=== PATIENT | male | born 1955 | race Caucasian/White ===

== ENCOUNTER 2023-03-15 02:19 | Emergency (ER) | payer OTHER, SELFPAY ==
--- NOTE | 2023-03-15 | ECG_ITS ---
Test Reason : ?SEIZURE Blood Pressure : / mmHG Vent. Rate : 076 BPM Atrial Rate : 076 BPM P-R Int : 178 ms QRS Dur : 106 ms QT Int : 394 ms P-R-T Axes : 063 007 086 degrees QTc Int : 443 ms Normal sinus rhythm Normal ECG No previous ECGs available Referred By: Generic ED Physician Electronically Signed By:DUSTIN OLIVER
--- NOTE | ~2023-03-15 | CT_ITS ---
EXAMINATION: CT HEAD WITH/WITHOUT CONTRAST CLINICAL INFORMATION: New onset seizures. History of meningioma. COMPARISON: None available at our institution. TECHNIQUE: Contiguous axial imaging was performed from the skull base to vertex before and after the administration of 100 mL of Omnipaque [address] examination was performed using dose optimization techniques as appropriate, variously including the following: *Automated exposure control *Adjustment of mA and/or kV according to patient size (this includes techniques or standardized protocols for targeted exams where dose is matched to indication/reason for exam; i.e. extremities or head) *Use of iterative reconstruction technique DLP: 1626 mGy-cm FINDINGS: No acute intracranial hemorrhage or extra-axial collection. No acute territorial infarct. Extensive encephalomalacia and gliosis throughout the bilateral inferior frontal lobes. These changes underlie a large frontal calvarial cranioplasty. No areas of abnormal brain parenchymal enhancement. Dural venous sinuses enhance normally. Ventricular system normal in size and configuration. No hydrocephalus. Orbits and globes unremarkable. Mild mucosal thickening in inferior maxillary sinuses bilaterally. CT/CT head/brain wo/w IV con IMPRESSION: * No acute intracranial pathology. * Extensive encephalomalacia and gliosis throughout the bilateral inferior frontal lobes adjacent to the large frontal calvarial cranioplasty. * No areas of abnormal brain parenchymal enhancement.
--- NOTE | 2023-03-15 03:01 | ED.SEIZURE ---
HPI - Seizure General Chief Complaint: Seizure Stated Complaint: ? Seizure Time Seen by Provider: 03/15/23 02:35 Source: patient, family () and EMS Mode of arrival: EMS History of Present Illness HPI Narrative: 67-year-old male who presents via EMS after seizure activity that was witnessed by the during sleep. Patient does have a significant past medical history of craniotomy for a right frontal meningioma and at that time he had 1 seizure. Since that time patient is not on any prescribed medications other than for high blood pressure and depression. He has had no recent changes in medication, states that he has been feeling mildly on well since last Thursday but denies any fever, chills, neck pain, GI or symptoms, shortness of breath and denies any possible exposure to ticks. Patient does use CPAP overnight for ZHOU. Patient remembers that he came home after work, had dinner, watch the movie, and then went to bed early because he was feeling quite tired. At approximately midnight the came to bed, notice that he was not on a CPAP, woke him up and at that time patient placed to CPAP and then states that she was awakened by patient gasping out and noted that he demonstrated seizure-like activity in all extremities, he continued to have the CPAP in place which she left in place and called 911. The states that the seizure activity was short induration but that he was essentially out of it when EMS showed up. The next thing the patient remembers after putting the CPAP in place at midnight is being in the back of the ambulance. There is no loss of bowel or bladder. Patient denies any use of alcohol or drugs. Seizure History: No Place: Home Related Data Allergies Allergy/AdvReac Type Severity Reaction Status Date / Time Unable to Assess Allergy Verified 03/15/23 02:38 Review of Systems Review of Systems: Pertinent positives and negatives as stated in HPI [facility] Past Medical History Source: nursing notes reviewed Social History Social History Alcohol intake: current Alcohol intake frequency: a few times a week Alcohol type: beer and wine Smoked in Last 30 Days: No Use of substances other than those prescribed or required for medical reasons: No Advance Directives: No Advance Directives Information Provided: Yes Physical Exam Vital Signs: Vital Signs: Last Vital Signs Temp 97.9 F 03/15/23 03:44 Pulse 69 03/15/23 03:44 Resp 14 03/15/23 03:44 BP 148/72 H 03/15/23 03:44 Pulse Ox 93 03/15/23 03:44 O2 Del Method Room Air 03/15/23 03:44 BMI result Body Mass Index 36.7 VITAL SIGNS: Reviewed. GENERAL: Well developed, well nourished, in no acute distress. HEAD: Normocephalic/atraumatic EYES: PERRLA, EOMI EARS: Ext canals without abnormality NOSE: Nares patent bilateral OROPHARYNX: no oral lesions noted, posterior pharynx clear NECK: Supple, no adenopathy LUNGS: Normal breath sounds. No adventitious sounds or accessory muscle use. CARDIOVASCULAR: Regular rate and rhythm without noted murmurs, no JVD or lower extremity edema. ABDOMEN: Soft, non-tender, non-distended with bowel sounds. MUSCULOSKELETAL: No tenderness, deformities, or effusions noted on gross inspection. EXTREMITIES: No cyanosis, clubbing or edema. SKIN: Inspection of the skin reveals no rashes NEUROLOGIC: Alert and oriented x 4. Strength and sensation to light touch were grossly intact x 4, no facial asymmetry, no pronator drift, cranial nerves 2-12 are grossly intact.. Medications Administered Discontinued Medications Generic Name Dose Route Start Last Admin Trade Name Freq PRN Reason Stop Dose Admin Iohexol 85 ml 03/15/23 04:37 03/15/23 04:38 Iohexol 350 Mg/Ml 100 Ml Infus..Btl IV 03/15/23 04:38 85 ml ONCE ONE Administration Medical Decision Making Medical Decision Making MDM Narrative: 67-year-old male with history and clinical presentation concerning for possible mass recurrence bowl will also evaluate for infectious, electrolyte abnormalities. Very low clinical suspicion for aseptic meningitis. I reviewed all investigations to include imaging studies and there are no acute findings to suggest infectious, anemia, electrolyte abnormalities and feel that this may be multi factorial with feeling under the weather, increased stress at work as well as prior intracranial manipulations. However, at this time there is no suggestion of mass or mass effect. I discussed all results and findings with the patient at bedside, he is strongly recommended to follow-up with Neurology and will be provided with a referral. He was counseled on driving until he is further evaluated by Neurology. He is otherwise discharged home in stable condition. Differential Diagnosis Please see the discussion above Lab Data Please see the discussion above 03/15/23 03:01 03/15/23 03:01 Labs: Lab Results 03/15/23 03/15/23 03/15/23 Range/Units 03:01 03:01 03:01 WBC 8.9 (4.8-10.8) X10*3/uL RBC 5.46 (4.60-5.80) X10*6/uL Hgb 14.7 (14.0-18.0) g/dl Hct 44.8 (42.0-52.0) % MCV 82.1 (80.0-98.0) fL MCH 26.9 L (27.0-33.0) pg MCHC 32.8 (31.0-36.0) g/dl RDW 13.8 (11.0-16.0) % Plt Count 252 (160-400) X10*3/uL MPV 10.0 (9.4-12.4) fL Immature Gran % (Auto) 0.4 (0.0-0.4) % Neut % (Auto) 63.2 (45-73) % Lymph % (Auto) 24.2 (20-40) % [place] % (Auto) 7.5 (2-11) % Eos % (Auto) 3.8 (0-4) % Baso % (Auto) 0.9 (0-2) % Lymph # (Auto) 2.2 (1.2-4.9) X10*3/uL [place] # (Auto) 0.7 (0.1-1.2) X10*3/uL Eos # (Auto) 0.3 (0.0-0.4) X10*3/uL Baso # (Auto) 0.1 (0.0-0.2) X10*3/uL Abs Immat Gran (auto) 0.04 H (0.00-0.03) X10*3/uL Absolute Neuts (auto) 5.6 (2.0-8.3) x10*3/uL Absolute Nucleated RBC 0.000 (0.0-0.012) X10*3/uL Nucleated RBC % (auto) 0.0 (0.0-0.2) /100WBC PT 10.2 (10.0-13.1) SEC INR 0.9 (0.9-1.1) Sodium 142 (135-145) mmol/L Potassium 4.1 (3.3-5.1) mmol/L Chloride 108 (96-108) mmol/L Carbon Dioxide 27 (22-29) mmol/L Anion Gap 11 L (12-20) BUN 13 (9-16) mg/dL Creatinine 0.86 (0.5-1.4) mg/dL Estim Creat Clear Calc 114.3 Estimated GFR > 60 Random Glucose 130 H (60-115) mg/dL Calcium 9.5 (8.4-10.2) mg/dL Total Bilirubin 0.3 (0.0-1.0) mg/dL AST 15 (5-37) U/L ALT 18 (0-40) U/L Alkaline Phosphatase 71 (39-117) U/L Troponin I High Sens (<3.5-35.0) ng/L Total Protein 7.0 (6.5-8.0) g/dL Albumin 4.3 (3.5-5.0) g/dL Urine Color Urine Appearance Urine pH (5.0-9.0) Ur Specific [place] (1.005-1.025) Urine Protein (Neg-Trace) mg/dL Urine Glucose (UA) (Negative) mg/dL Urine Ketones (Negative) mg/dL Urine Blood (Negative) Urine Nitrite (Negative) Ur Leukocyte Esterase (Negative) Urine Opiates Screen (Not Detect) Urine Fentanyl Screen (Not Detect) Ur Barbiturates Screen (Not Detect) Ur Phencyclidine Scrn (Not Detect) Ur Amphetamines Screen (Not Detect) U Benzodiazepines Scrn (Not Detect) Urine Cocaine Screen (Not Detect) U Marijuana (THC) Screen (Not Detect) Ethyl Alcohol < 10 mg/dL 03/15/23 03/15/23 03/15/23 Range/Units 03:01 03:47 03:47 WBC (4.8-10.8) X10*3/uL RBC (4.60-5.80) X10*6/uL Hgb (14.0-18.0) g/dl Hct (42.0-52.0) % MCV (80.0-98.0) fL MCH (27.0-33.0) pg MCHC (31.0-36.0) g/dl RDW (11.0-16.0) % Plt Count (160-400) X10*3/uL MPV (9.4-12.4) fL Immature Gran % (Auto) (0.0-0.4) % Neut % (Auto) (45-73) % Lymph % (Auto) (20-40) % [place] % (Auto) (2-11) % Eos % (Auto) (0-4) % Baso % (Auto) (0-2) % Lymph # (Auto) (1.2-4.9) X10*3/uL [place] # (Auto) (0.1-1.2) X10*3/uL Eos # (Auto) (0.0-0.4) X10*3/uL Baso # (Auto) (0.0-0.2) X10*3/uL Abs Immat Gran (auto) (0.00-0.03) X10*3/uL Absolute Neuts (auto) (2.0-8.3) x10*3/uL Absolute Nucleated RBC (0.0-0.012) X10*3/uL Nucleated RBC % (auto) (0.0-0.2) /100WBC PT (10.0-13.1) SEC INR (0.9-1.1) Sodium (135-145) mmol/L Potassium (3.3-5.1) mmol/L Chloride (96-108) mmol/L Carbon Dioxide (22-29) mmol/L Anion Gap (12-20) BUN (9-16) mg/dL Creatinine (0.5-1.4) mg/dL Estim Creat Clear Calc Estimated GFR Random Glucose (60-115) mg/dL Calcium (8.4-10.2) mg/dL Total Bilirubin (0.0-1.0) mg/dL AST (5-37) U/L ALT (0-40) U/L Alkaline Phosphatase (39-117) U/L Troponin I High Sens 5.4 (<3.5-35.0) ng/L Total Protein (6.5-8.0) g/dL Albumin (3.5-5.0) g/dL Urine Color Yellow Urine Appearance Clear Urine pH 7.0 (5.0-9.0) Ur Specific [place] 1.010 (1.005-1.025) Urine Protein Negative (Neg-Trace) mg/dL Urine Glucose (UA) Negative (Negative) mg/dL Urine Ketones Negative (Negative) mg/dL Urine Blood Negative (Negative) Urine Nitrite Negative (Negative) Ur Leukocyte Esterase Negative (Negative) Urine Opiates Screen Not Detected (Not Detect) Urine Fentanyl Screen Not Detected (Not Detect) Ur Barbiturates Screen Not Detected (Not Detect) Ur Phencyclidine Scrn Not Detected (Not Detect) Ur Amphetamines Screen Not Detected (Not Detect) U Benzodiazepines Scrn Not Detected (Not Detect) Urine Cocaine Screen Not Detected (Not Detect) U Marijuana (THC) Screen Not Detected (Not Detect) Ethyl Alcohol mg/dL Independent Interpretation I performed an independent interpretation of an: EKG Interpretation: Normal sinus rhythm, HR-76, no STEMI, MT/QRS/QTC are within normal limits. Radiology Impression Radiologist Impression: My interpretation is in agreement with radiology's impression of the imaging studies. Chronic Conditions Patient?s care impacted by: Hypertension Discharge Plan Discharge Clinical Impression: Generalized seizure Patient Disposition: Home, Self-Care Instructions: Nonepileptic Seizures (ED) Additional Instructions: 1. Resume all home medications as prescribed. 2. Please call the office for the neurology referral on Thursday to set up an appointment for re-evaluation further outpatient management. In addition, please contact your primary care provider. Return to the ER for any worsening symptoms. Referrals: Eileen Maurer MD [Physician] -
[2023-03-15 03:05] LABS: MANUAL DIFF FLAG NO
[2023-03-15 03:06] VITALS: BP 150/72; BP 218/116; PULSE 72; PULSE 82; RESP 12; TEMP 36.7; O2SAT 95; O2SAT 96; BMI 36.7
[2023-03-15 03:06] LABS: Basophils Absolute Auto 0.1 X10*3/uL (0.0-0.2); Basophils Percent Auto 0.9 % (0-2); Eosinophils Absolute Auto 0.3 X10*3/uL (0.0-0.4); Eosinophils Percent Auto 3.8 % (0-4); Hematocrit 44.8 % (42.0-52.0); Hemoglobin 14.7 g/dl (14.0-18.0); Imm Gran Abs Auto 0.04 X10*3/uL (0.00-0.03); Imm Gran Pct Auto 0.4 % (0.0-0.4); Lymphocytes Absolute Auto 2.2 X10*3/uL (1.2-4.9); Lymphocytes Percent Auto 24.2 % (20-40); Mean Corpuscular HGB Conc 32.8 g/dl (31.0-36.0); Mean Corpuscular Hemoglobin 26.9 pg (27.0-33.0); Mean Corpuscular Volume 82.1 fL (80.0-98.0); Monocytes Absolute Auto 0.7 X10*3/uL (0.1-1.2); Monocytes Percent Auto 7.5 % (2-11); Neutrophils Absolute Auto 5.6 x10*3/uL (2.0-8.3); Neutrophils Percent Auto 63.2 % (45-73); Platelet Count 252 X10*3/uL (160-400); Red Blood Count 5.46 X10*6/uL (4.60-5.80); Red Cell Distribution Width 13.8 % (11.0-16.0); White Blood Count 8.9 X10*3/uL (4.8-10.8)
[2023-03-15 03:13] LABS: INTERNATIONAL NORM RATIO 0.9 (0.9-1.1); Prothrombin Time 10.2 SEC (10.0-13.1)
[2023-03-15 03:28] LABS: Alanine Aminotransferase 18 U/L (0-40); Albumin Level 4.3 g/dL (3.5-5.0); Alkaline Phosphatase 71 U/L (39-117); Anion Gap 11 (12-20); Aspartate Amino Transferase 15 U/L (5-37); Bilirubin Total 0.3 mg/dL (0.0-1.0); Blood Urea Nitrogen 13 mg/dL (9-16); Calcium 9.5 mg/dL (8.4-10.2); Carbon Dioxide 27 mmol/L (22-29); Chloride 108 mmol/L (96-108); Creatinine Clr Calc Pharmacy 114.3; Estimated Glomerular Filt Rate > 60; Ethanol < 10 mg/dL; Glucose Random 130 mg/dL (60-115); Potassium 4.1 mmol/L (3.3-5.1); Sodium 142 mmol/L (135-145)
[2023-03-15 03:29] LABS: Troponin-I High Sensitivity 5.4 ng/L (<3.5-35.0)
[2023-03-15 03:44] VITALS: BP 148/72; PULSE 69; RESP 14; TEMP 36.6; O2SAT 93
[2023-03-15 03:54] LABS: Appearance Urine Clear; Color Urine Yellow; Glucose Urine UA Negative (Negative); Leukocyte Esterase Urine Negative (Negative); Nitrite Urine Negative (Negative); Urine Blood Negative (Negative); Urine Ketones Negative (Negative); Urine Protein Negative (Neg-Trace)
[2023-03-15 04:08] LABS: Amphetamine Screen Urine Not Detected (Not Detect); Barbiturates, Urine Not Detected (Not Detect); Benzodiazepines Screen Urine Not Detected (Not Detect); Cannabinoid Screen Urine Not Detected (Not Detect); Cocaine Screen Urine Not Detected (Not Detect); Fentanyl, urine Not Detected (Not Detect); Opiate Screen Urine Not Detected (Not Detect); Phencyclidine Screen Urine Not Detected (Not Detect)
[2023-03-15] MEDS: iohexoL 350 MG/ML 100 ML INFUS..BTL 85 ML IV (04:38)
--- NOTE | 2023-03-15 04:51 | PC.NURSE ---
on reassessment, pt found siting on stretcher, in conversation with at bedside, no acute distress. neuro intact, AxO x4, speech returned to clear per . pt short/senior care memory intact, recalls details requested to memorize by this RN during initial assessment. Awsare of plan of care, holding PO intake until CT read complete.
== END 2023-03-15 06:24 | disposition home or self-care (01) ==
PROVIDERS: Emergency Provider Student in an Organized Health Care Education/Training Program
DX: R56.9 Unspecified convulsions (principal); Z79.899 Other long term (current) drug therapy
CPT/HCPCS: 36415; 70470; 80053; 80307; 81003; 84484; 85025; 85610; 93005; 99284; Q9967

== ENCOUNTER 2023-03-15 11:10 | Emergency (ER) | payer OTHER, SELFPAY ==
[2023-03-15 11:13] VITALS: BP 173/84; PULSE 72; RESP 17; TEMP 36.4; O2SAT 96; BMI 36.1
--- NOTE | 2023-03-15 11:32 | ED_ITS ---
HPI - Neuro Symptoms/Deficit General Chief Complaint: Neuro Symptoms/Deficit Stated Complaint: seizure/ disoriented Time Seen by Provider: 03/15/23 11:24 Source: patient Mode of arrival: ambulatory Limitations: no limitations History of Present Illness HPI Narrative: Patient history of seizure in 2006 after meningioma surgery was given Keppra for 1 year asymptomatic since and have any any seizures since then last night patient was seen here because had a seizure at midnight patient discharged supposed to follow-up with urologist earlier today at 06:00 patient noted to be more confused and sleepy likely had a seizure but not witnessed. No tongue bite no other symptoms no headache patient is still feeling sleepy Related Data Previous Rx's Medication Instructions Recorded levetiracetam 500 mg tablet 500 mg PO BID #60 tabs 03/15/23 (Keppra) Allergies Allergy/AdvReac Type Severity Reaction Status Date / Time Unable to Assess Allergy Verified 03/15/23 02:38 Review of Systems Review of Systems: Yes all other systems are reviewed and are negative [facility] Social History Social History Alcohol intake: former Smoked in Last 30 Days: No Advance Directives: Yes Advance Directives Information Provided: Yes Advance Directives on File: No Physical Exam Vital Signs: Vital Signs: Last Vital Signs Temp 97.6 F 03/15/23 12:28 Pulse 72 03/15/23 12:28 Resp 17 03/15/23 12:28 BP 163/78 H 03/15/23 12:28 Pulse Ox 96 03/15/23 12:28 O2 Del Method Room Air 03/15/23 12:28 BMI result Body Mass Index 36.1 Appearance: Alert. Oriented X3. No acute distress. Eyes: PERRLA, No Nystagmus ENT: Pharynx normal. Oral Mucosa moist Neck: Normal inspection. Neck supple. CVS: Normal heart rate and rhythm. Pulses normal. Respiratory: No respiratory distress. Equal air entry bilateral, no wheezing/rales/rhonchi Abdomen: Soft and nontender. Bowel sounds are present, no mass palpable, no CVA tenderness Skin: Skin warm and dry. Normal skin color. Normal skin turgor. Extremities: No lower extremity edema. No calf tenderness Neuro: Oriented X 3. No motor deficit. No sensory deficit.No cerebellar signs , cranial nerves II-XII intact Medications Administered Discontinued Medications Generic Name Dose Route Start Last Admin Trade Name Ambreen PRN Reason Stop Dose Admin Levetiracetam 1,000 mg 03/15/23 11:45 03/15/23 11:57 Levetiracetam 1,000 Mg Tablet PO 03/15/23 11:46 1,000 mg ONCE ONE Administration Medical Decision Making Medical Decision Making [facility] Narrative: Patient recurrent seizure status post meningioma surgery will start patient home again on Keppra advised to follow with neurologist Discharge Plan Discharge Clinical Impression: Generalized seizure Patient Disposition: Home, Self-Care Instructions: New-Onset Seizure in Adults (ED) Additional Instructions: Take Keppra 500 mg twice daily Follow with neurologist Prescriptions: New levetiracetam [Keppra] 500 mg tablet 500 mg PO BID Qty: 60 0RF Referrals: Eileen Maurer MD [Physician] - 1 week Interventions: ED Discharge Assessment Last Done: 03/15/23 12:49 Discharge Date/Time: 03/15/23 12:55
[2023-03-15] MEDS: levETIRAcetam 1,000 MG TABLET 1000 MG PO (11:57)
[2023-03-15 12:28] VITALS: BP 163/78; PULSE 72; RESP 17; TEMP 36.4; O2SAT 96
== END 2023-03-15 12:55 | disposition home or self-care (01) ==
PROVIDERS: Emergency Provider Internal Medicine; PCP Internal Medicine
DX: R56.9 Unspecified convulsions (principal)
CPT/HCPCS: 99283; 99284

== ENCOUNTER 2025-05-01 08:31 | Outpatient (AMB) | payer OTHER, SELFPAY ==
--- OUTSIDE RECORDS SUMMARY | 2025-05-01 08:36 | XMS_ITS | Clinical Summary ---
Author Organization [facility] Address [address] [place] [address] Care Team Providers Care Bowling Alley Floors Installer Name Role Phone Rick Rossi MD Primary Care Provider + [phone] Medications Medication Sig Dispensed Refills Start Date End Date Status amLODIPine-benazepril (LOTREL) 10-40 MG per capsule 0 12/13/2022 Active amphetamine-dextroamph etamine (ADDERALL XR) 25 MG 24 hr capsule Take 1 capsule (25 mg total) by mouth. 0 07/24/2021 Active carvedilol (COREG) 25 MG tablet 0 01/26/2023 Active citalopram (CeleXA) 20 MG tablet 0 12/27/2022 Active spironolactone (ALDACTONE) tablet 25 mg 0 01/07/2023 Active levETIRAcetam (KEPPRA) 500 MG tablet Take 1 tablet (500 mg total) by mouth 2 (two) times a day. 0 Active aspirin EC 81 MG tablet Take 1 tablet (81 mg total) by mouth daily. 0 Active Multiple Vitamins-Minerals (CENTRUM SILVER PO) Take by mouth. 0 A ctive vitamin D3 (cholecalciferol) 10 MCG (400 UNIT) tablet Take 1 tablet (10 mcg total) by mouth daily. 0 Active Active Problems Problem Noted Date Diagnosed Date Prostate cancer 10/01/2023 Social History Tobacco Use Types Packs/Day Years Used Date Smoking Tobacco: Never Smokeless Tobacco: Never Tobacco Cessation:Counseling Given: Not Answered Alcohol Use Standard Drinks/Week Comments Yes 3 (1 standard drink = 0.6 oz pur e alcohol) Sex and Gender Information Value Date Recorded Sex Assigned at Male 12/17/2022 4:09 PM EST Gender Identity Not on file Sexual Orientation Not on file Job Start Date Occupation Industry Not on file Not on file Not on file Last Filed Vital Signs Vital Sign Reading Time Taken Comments Blood Pressure 139/70 10/01/2023 9:31 AM EST Pulse 70 10/01/2023 9:31 AM EST Temperature 36 C (96.8 F) 03/06/2023 3:14 PM EDT Respiratory Rate - - Oxygen Saturation 98% 10/01/2023 9:31 AM EST Inhaled Oxygen Concentration - - Weight 120.2 kg (265 lb) 10/01/2023 9:31 AM EST Height 180.3 cm (5' 11 ) 10/01/2023 9:31 AM EST Body Mass Index 36.96 10/01/2023 9:31 AM EST Plan of Treatment Health Maintenance Due Date Last Done Comments Hepatitis C Screening 1956 COVID-19 Vaccine (#1) 1961 Pneumococcal Vaccine (1 of 2 - PCV) 1962 Depression Screening 1968 Preventative Health Evaluation 1974 DTap / Tdap / Td (1 - Tdap) 1975 Shingrix-Zoster Vaccine (1 of 2) 1975 Colon Cancer Screening (Colonoscopy) 2001 Fall Risk Assessment 2021 Influenza Vaccine (#1) 2025 RSV Adult > 60+ Yrs or Pregn ant (1 - 1-dose 75+ series) 2031 Hepatitis B Vaccines Aged Out No long er eligible based on patient's age to complete this topic RSV Ped < 20 months Aged Out No longe r eligible based on patient's age to complete this topic Care Teams Bowling Alley Floors Installer Relationship Specialty Start Date End Date Rick Rossi MD [address] [address] PCP - General Internal Medicine 12/17/22
--- OUTSIDE RECORDS SUMMARY | 2025-05-01 08:36 | XMS_ITS | Clinical Summary ---
Author Organization [facility] Address [address] [address] Phone Care Team Providers Care Health Service Worker Name Role Phone Rick Rossi MD Primary Care Provider [phone] Allergies Active Allergy Reactions Criticality Noted Date Comments Cat Dander Shortness of breath High 10/19/1969 Other 10/19/1969 Peanut (Diagnostic) Shortness of breath High 023 Medications amLODIPine-jacki zepril (LOTREL) 10-40 MG per capsule Take 1 capsule by mouth 1 (one) time each day 06/15/2021 Active amphetamine-dex troamphetamine XR (ADDERALL XR) 25 MG 24 hr capsule Take 1 capsule by mouth 1 (one) time each day 07/24/2021 Active carvedilol (COREG) 25 MG tablet Take 1 tablet by mouth 2 (two) times a day 08/17/2021 Active citalopram (CeleXA) 20 MG tablet Take 1 tablet by mouth 1 (one) time each day 06/29/2021 Active Multiple Vitamin (multivitamin) tablet Take 1 tablet by mouth 1 (one) time each day Active cholecalciferol (VITAMIN D-3) 125 MCG (5000 UT) capsule Take 5,000 Units by mouth 1 (one) time each day Active spironolactone (ALDACTONE) 25 MG tablet Take 0.5 tablets (12.5 mg total) by mouth 1 (one) time each day 45 tablet 3 01/07/2023 Active Active Problems Problem Noted Date Diagnosed Date Essential (primary) hypertension 08/19/2021 Family History Medical History Relation Comments Hypertension Father Dementia Mother Relation Status Comments Father Mother Social History Tobacco Use Types Packs/Day Years Used Date Smoking Tobacco: Never Smokeless Tobacco: Never Alcohol Use Standard Drinks/Week Comments Yes 2 (1 standard drink = 0.6 oz pur e alcohol) Sex and Gender Information Value Date Recorded Sex Assigned at Male 12/31/2022 2:37 PM EDT Legal Sex Male 9:09 AM EDT Gender Identity Male 12/31/2022 2:37 PM EDT Sexual Orientation Straight 12/31/2022 2: 37 PM EDT Last Filed Vital Signs Vital Sign Reading Time Taken Comments Blood Pressure 130/80 01/06/2023 2:45 PM EDT Pulse 60 01/06/2023 2:45 PM EDT Temperature - - Respiratory Rate - - Oxygen Saturation 96% 11/25/2021 2:32 PM EST Inhaled Oxygen Concentration - - Weight 121 kg (267 lb 6.4 oz) 01/06/2023 2:19 PM EDT Height - - Body Mass Index - - Plan of Treatment Health Maintenance Due Date Last Done Comments Pneumococcal Vaccine: 50+ Ye ars (1 of 2 - PCV) 1975 Colorectal Cancer Screening: Annual FOBT 2005 Colorectal Cancer Screening: Colonoscopy 2005 Colorectal Cancer Screening: Sigmoidoscopy 2005 Influenza Vaccine (#1) 2025 Hepatitis B Vaccine Aged Out No longe r eligible based on patient's age to complete this topic Insurance [facility] Care Teams Health Service Worker Relationship Specialty Start Date End Date Rick Rossi MD [address] [place] [address] PCP - General Internal Medicine 07/10/21
--- OUTSIDE RECORDS SUMMARY | 2025-05-01 08:36 | XMS_ITS | Encounter Summary ---
Author Organization [facility] Address [address] [place] [address] Care Team Providers Care Pipeline Integrity Engineer Name Role Phone Physician, Pcp Unknown Primary Care Provider Mojgan vailable Encounter Details Date Type Department Care Team (Late st Contact Info) Description 11/23/2024 Lab Requisition [facility] - Main Lab [address] [facility] [place] [address] Asael Thomas MD [address] [place] [address] Gross hematuria Social History Tobacco Use Types Packs/Day Years Used Date Smoking Tobacco: Never Smokeless Tobacco: Never Alcohol Use Standard Drinks/Week Comments Yes 3 (1 standard drink = 0.6 oz pur e alcohol) Sex and Gender Information Value Date Recorded Sex Assigned at Not on file Legal Sex Male 11:55 PM EST Gender Identity Not on file Sexual Orientation Not on file documented as of this encounter Plan of Treatment Not on file documented as of this encounter Procedures Procedure Name Priority Date/Time Associated Diagnosis Comments AP OUTSIDE CONSULT Routine 11/16/2024 12 :00 AM EST Gross hematuria documented in this encounter Results * Anatomic pathology outside consult (11/16/2024 12:00 AM EST) Final Diagnosis A. Urine, Voided, ([id number]): Negative for high grade urothelial carcinoma. Results of [employer] fluorescence in situ hybridization (FISH) testing: CEP3: Normal CEP7: Normal CEP17: Normal LSI 9p21: Normal Interpretation: Normal profile Controls stained appropriately. Note: The results are intended as a screening device and should be interpreted in association with other clinical and pathological findings. 12/01/2024 3:57 PM EST [facility] Clinical Information Gross hematuria R31.0 Urine Cytology/FISH (now) 12/01/2024 3:57 PM [facility] Gross Description A. Urine, Voided, ([id number]): Received one ThinPrep slide for cytology and one ThinPrep slide for [employer] FISH 12/01/2024 3:57 PM [facility] Disclaimer Unless otherwise specified, all tissue is 10% NB formalin fixed and paraffin embedded. Technical pathology services provided by [facility] at [address] [place] [address] [address] [address] (CLIA #[id number]/Justina Bullock MD, Match Up Person) 12/01/2024 3:57 PM [facility] Tissue Urine specimen from urethra / Unknown 11/16/2024 11/23/2024 10:05 AM EST Asael Thomas MD LAB PATHOLOGY ORDERABLES Final Result [facility] [address] [place] [address], documented in this encounter Visit Diagnoses Diagnosis Gross hematuria documented in this encounter Care Teams Pipeline Integrity Engineer Relationship Specialty Start Date End Date Physician, Pcp Unknown PCP - General 11/23/24 documented as of this encounter
--- NOTE | 2025-05-01 08:42 | MHC.OFFVIS ---
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 [facility] Medical History (Updated 05/01/25 @ 08:46 by Eileen Maurer MD) Behavior disturbance MCI (mild cognitive impairment) HTN (hypertension) Meningioma Encephalomalacia Generalized seizure disorder Social History Alcohol intake: former Review of Systems Const Details: Constitutional:?No fever, chills, fatigue, weight loss, or night sweats. HEENT:?No headache, vision changes, hearing loss, nasal congestion, sore throat. Neurological:?No dizziness, syncope, seizures, numbness, tingling, weakness, tremors, memory loss. Psychiatric:?No anxiety, depression, mood swings, sleep disturbance, or hallucinations. Endocrine:?No heat/cold intolerance, polydipsia, polyuria, or hair/skin changes. Hematologic/Lymphatic:?No easy bruising, bleeding, or lymphadenopathy. Integumentary (Skin):?No rash, lesions, itching, or color changes. ? Physical Exam Neuro Other: Mental Status: Alert and oriented to person, place, and time. Normal attention. Normal spontaneous speech, fluency, and comprehension. No obvious issues with mood and memory. Affect is appropriate. Cranial Nerves: CN II: Visual hansen full to confrontation, visual acuity intact. CN III, IV, : Pupils equal, round, reactive to light and accommodation. Extraocular movements are normal. CN V: Facial sensation is normal. CN VII: Facial movements symmetrical. CN VIII: Hearing intact to bedside conversation is normal. CN IX, X: Palate elevates symmetrically. CN XI: Shoulder shrug and head turn symmetrical. CN XII: Tongue midline without atrophy or fasciculations. Motor: Bulk and tone normal in all extremities. No significant muscle weakness in arms and legs. No drift. Reflexes: Deep tendon reflexes 2+ and symmetric. Plantar response down-going bilaterally. Coordination: Nyymyo-po-ulys and [id number] testing normal. No dysmetria. Gait and Station: No obvious gait abnormality. No ataxia or instability. Sensory: Intact to light touch, pinprick, and vibration. Romberg is negative. Extrapyramidal: Full facial expressions and blinking. No rigidity. Movements are appropriate with no tremor or abnormality. Speech: Normal; no dysarthria or tremor. 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
== END 2025-05-01 08:55 | disposition home or self-care (01) ==
LOC: HO.HSM 08:31
PROVIDERS: Visit Provider Psychiatry & Neurology Neurology
DX: G40.309 Generalized idiopathic epilepsy and epileptic syndromes, not intractable, without status epilepticus (principal); I69.398 Other sequelae of cerebral infarction; F91.9 Conduct disorder, unspecified
CPT/HCPCS: 99214